=== PATIENT | female | born 1985 | race Caucasian/White ===

== ENCOUNTER → 2017-05-17 | Outpatient (CLI) | payer OTHER ==
[~2017-05-17] VITALS: Ht 152.4 cm; Wt 54.4 kg
[~2017-05-17] MED LIST: ALLEGRA ALLERG180 MG PO; CELEXA20 MG; CIPRO500 MG PO; DAILY VALUE1 EACH; FISH OIL300 MG; MAGNESIUM100 MG; METROGEL-VAGINA70 GM VG; SEPTRA DS TABLE1 TAB PO; URETRON DS1 TAB PO
== END | disposition home or self-care (01) ==
LOC: PPHC 09:06
DX: B34.9 Viral infection, unspecified (principal)

== ENCOUNTER 2017-09-16 02:42 | Emergency (ER) | payer OTHER ==
[~2017-09-16] VITALS: Ht 165.1 cm; Wt 57.6 kg
[2017-09-16] MEDS ORDERED: SINGULAIR10 MG (02:57)
[2017-09-16] MEDS ORDERED: PHENERGAN25 MG PO (08:00)
[2017-09-16] MEDS ORDERED: PEPCID40 MG PO (08:00)
[2017-09-16] MEDS ORDERED: CARAFATE1 GM/10 ML PO (08:00)
== END 2017-09-16 08:13 ==
LOC: ER 02:42
DX: S00.83XA Contusion of other part of head, initial encounter (principal); W22.8XXA Striking against or struck by other objects, initial encounter; Y93.89 Activity, other specified; Y92.098 Other place in other non-institutional residence as the place of occurrence of the external cause; Y99.8 Other external cause status; R11.2 Nausea with vomiting, unspecified

== ENCOUNTER → 2017-11-11 | Emergency (ER) | payer OTHER ==
[~2017-11-11] VITALS: Ht 165.1 cm; Wt 56.7 kg
[~2017-11-11] MED LIST changes: +CARAFATE1 GM/10 ML PO; +PEPCID40 MG PO; +PHENERGAN25 MG PO; +SINGULAIR10 MG
== END | disposition home or self-care (01) ==
LOC: ER 11:29
DX: M79.644 Pain in right finger(s) (principal)

== ENCOUNTER 2017-11-30 14:03 | Emergency (ER) | payer OTHER ==
[~2017-11-30] VITALS: Ht 165.1 cm; Wt 61.2 kg
== END 2017-11-30 17:49 | disposition home or self-care (01) ==
LOC: ER 14:03
DX: S13.4XXA Sprain of ligaments of cervical spine, initial encounter (principal); M62.830 Muscle spasm of back; V49.9XXA Car occupant (driver) (passenger) injured in unspecified traffic accident, initial encounter; Y93.89 Activity, other specified; Y92.488 Other paved roadways as the place of occurrence of the external cause; Y99.8 Other external cause status

== ENCOUNTER → 2018-08-10 | Emergency (ER) | payer OTHER | END | disposition left against medical advice (07) | LOC: ER 11:24 | DX: Z53.20 Procedure and treatment not carried out because of patient's decision for unspecified reasons (principal) ==

== ENCOUNTER → 2019-05-19 | Outpatient (CLI) | payer OTHER | END | disposition home or self-care (01) | LOC: LAB 13:01 | DX: J11.1 Influenza due to unidentified influenza virus with other respiratory manifestations (principal); R05 Cough ==

== ENCOUNTER 2019-05-31 07:28 | Emergency (ER) | payer OTHER ==
[~2019-05-31] VITALS: Ht 165.1 cm; Wt 65.8 kg
[2019-05-31] MEDS ORDERED: LEVSIN/SL0.125 MG SL (08:20)
== END 2019-05-31 08:30 | disposition home or self-care (01) ==
LOC: ER 07:28
DX: R53.81 Other malaise (principal)

== ENCOUNTER 2019-09-11 11:00 | Outpatient (CLI) | payer OTHER ==
[~2019-09-11 11:00] MED LIST changes: +LEVSIN/SL0.125 MG SL
== END 2019-09-11 11:12 | disposition home or self-care (01) ==
LOC: LAB 11:00
PROVIDERS: ATTEND General Practice
DX: J11.1 Influenza due to unidentified influenza virus with other respiratory manifestations (principal); Z20.828 Contact with and (suspected) exposure to other viral communicable diseases; R51 Headache; R53.81 Other malaise; Z11.59 Encounter for screening for other viral diseases

== ENCOUNTER 2020-11-07 15:58 | Emergency (ER) | payer OTHER ==
[~2020-11-07] VITALS: Ht 165.1 cm; Wt 70.3 kg
== END 2020-11-07 20:09 | disposition home or self-care (01) ==
LOC: ER 15:58
DX: J06.9 Acute upper respiratory infection, unspecified (principal); R53.81 Other malaise; M54.5 Low back pain; R53.1 Weakness; Z03.818 Encounter for observation for suspected exposure to other biological agents ruled out

== ENCOUNTER → 2024-08-05 | Emergency (ER) | payer OTHER ==
[~2024-08-05] VITALS: Ht 165.1 cm; Wt 72.1 kg
[~2024-08-05] MED LIST changes: +0.9 % SODIUM CHLORIDE 1,000 ML IV STA; +FAMOTIDINE/PF 20 MG/2 ML VIAL IV ONE; +FAMOTIDINE/PF 20 MG/2 ML VIAL ONE; +ONDANSETRON HCL 2 MG/ML VIAL IV ONE; +ONDANSETRON HCL 2 MG/ML VIAL ONE
[2024-08-05 16:45] LABS: BASO % 0.4 % (0.1-1.2); EOS # 0.11 (0.04-0.54); EOS % 0.7 % (0.7-7.0); HEMATOCRIT 34.1 % (34.1-44.9); HEMOGLOBIN 11.8 g/dL (11.2-15.7); LYMPH # 2.94 (1.18-3.74); LYMPH % 17.5 % (19.3-53.1); MEAN CORPUSCULAR HEMOGLOBIN 29.5 pg (25.6-32.2); MONO # 0.57 (0.24-0.82); MONO % 3.4 % (4.7-12.5); NEUT # 12.86 (1.56-6.13); NEUT % 76.5 % (34.0-71.1); PLATELET COUNT 263 K/uL (163-369); RED CELL DISTRIBUTION WIDTH 12.9 % (11.6-14.4)
[2024-08-05 17:05] LABS: CALCIUM 9.7 mg/dL (8.5-10.1); CREATININE SERUM 0.49 mg/dL (0.55-1.02); GFR 140.6; POTASSIUM 3.73 mEq/L (3.5-5.1)
[2024-08-05 17:20] LABS: PH,URINE 6.5 (5.0-8.0); URINE APPEARANCE Clear; URINE BILIRRUBIN Negative (NEGATIVE); URINE BLOOD Small; URINE COLOR Yellow; URINE GLUCOSE Negative (NEGATIVE); URINE LEUKOCYTE Negative; URINE NITRATE Negative; URINE PROTEIN Negative (NEGATIVE); URINE UROBILINOGEN 0.2 E.U./dl
[2024-08-05 17:24] LABS: URINE BACTERIA 598.4 uL (0.0-1933); URINE EPITHELIAL CELLS 16.7 uL (0.0-38.8); URINE RBC 36.3 uL (0.0-20.8)
[2024-08-05 17:53] LABS: URINE KETONE 80 (NEGATIVE)
== END | disposition home or self-care (01) ==
LOC: ER 13:28
PROVIDERS: Emergency Medicine
DX: O21.8 Other vomiting complicating pregnancy (principal); E86.0 Dehydration; Z3A.20 20 weeks gestation of pregnancy

== ENCOUNTER 2024-11-01 11:26 | Outpatient (CLI) | payer OTHER ==
[~2024-11-01 11:26] MED LIST changes: -0.9 % SODIUM CHLORIDE 1,000 ML IV STA; -FAMOTIDINE/PF 20 MG/2 ML VIAL IV ONE; -FAMOTIDINE/PF 20 MG/2 ML VIAL ONE; -ONDANSETRON HCL 2 MG/ML VIAL IV ONE; -ONDANSETRON HCL 2 MG/ML VIAL ONE
== END 2024-11-01 12:33 | disposition home or self-care (01) ==
LOC: NST 11:26
PROVIDERS: ATTEND Obstetrics & Gynecology Maternal & Fetal Medicine
DX: Z34.83 Encounter for supervision of other normal pregnancy, third trimester (principal)

== ENCOUNTER 2024-12-11 05:44 | Inpatient (IN) | payer OTHER ==
[~2024-12-11] VITALS: Ht 165.1 cm; Wt 79.4 kg
[2024-12-11 05:05] VITALS: BP 133/95
[2024-12-11] MEDS ORDERED: PRENATAL CAPLE1 EAC1 PO (05:52)
[2024-12-11] MEDS ORDERED: CHILDREN'S ASPI81 MG PO (05:57)
[2024-12-11] MEDS ORDERED: MAGNESIUM250 M1 PO (05:57)
[2024-12-11] MEDS ORDERED: RINGERS SOLUTION,LACTATED 1,000 ML IV SCH (06:15)
[2024-12-11 06:55] LABS: URINE APPEARANCE Clear; URINE BILIRRUBIN Negative (NEGATIVE); URINE BLOOD Negative; URINE COLOR Yellow; URINE GLUCOSE Negative (NEGATIVE); URINE KETONE Negative (NEGATIVE); URINE LEUKOCYTE Trace; URINE NITRATE Negative; URINE PROTEIN Negative (NEGATIVE); URINE UROBILINOGEN 0.2 E.U./dl
[2024-12-11 06:56] LABS: BASO % 0.6 % (0.1-1.2); EOS # 0.14 (0.04-0.54); EOS % 1.3 % (0.7-7.0); LYMPH # 3.86 (1.18-3.74); LYMPH % 35.0 % (19.3-53.1); MEAN PLATELET VOLUME 11.30 fl (9.4-12.4); MONO # 0.69 (0.24-0.82); MONO % 6.3 % (4.7-12.5); NEUT # 6.04 (1.56-6.13); NEUT % 54.7 % (34.0-71.1); RED CELL DISTRIBUTION WIDTH 14.6 % (11.6-14.4)
[2024-12-11 07:04] LABS: URINE BACTERIA 197.9 uL (0.0-1933); URINE EPITHELIAL CELLS 21.9 uL (0.0-38.8); URINE RBC 4.5 uL (0.0-20.8); URINE WBC 11.9 uL (0.0-23.2)
[2024-12-11 07:10] LABS: URINE CAST 0.00 uL (0.0-1.40)
[2024-12-11 07:17] LABS: INR < 0.93
[2024-12-11 07:24] LABS: ALT/SGPT 31.0 U/L (12-78); AST/SGOT 20.0 U/L (15-37); BILIRUBIN TOTAL 0.2 mg/dL (0.3-1.2); BUN CREA RATIO 18.0 (7.0-25.0); CREATININE SERUM 0.51 mg/dL (0.55-1.02); GFR 134.25; GLOBULINA 3.5 G/DL (2.4-3.5); GLUCOSE FASTING 85.0 mg/dL (65-100); OSMOLALITY SERUM 275.0 MOSM/KG (275-295)
[2024-12-11 07:30] VITALS: BP 144/89
[2024-12-11] MEDS ORDERED: OXYTOCIN 500 ML IV ONE (08:15)
[2024-12-11] MEDS ORDERED: OXYTOCIN 20 UNITS/500ML RL PIGGYBAG IV ONE (08:25)
[2024-12-11 11:05] VITALS: BP 135/83
[2024-12-11] MEDS ORDERED: MORPHINE SULFATE 4 MG/ML CARTRIDGE IV STA ×2 (13:58→16:09)
[2024-12-11 14:07] VITALS: BP 135/78
[2024-12-11 15:39] VITALS: BP 140/70
[2024-12-11] MEDS ORDERED: ERYTHROMYCIN BASE OPHT 1GM EACH TUBE OP ONE (17:52)
[2024-12-11] MEDS ORDERED: LIDOCAINE HCL 1% 10ML VIAL ONE (17:52)
[2024-12-11] MEDS ORDERED: CHLORHEXIDINE GLUCONATE 120 ML BOTTLE TOP ONE (17:52)
[2024-12-11] MEDS ORDERED: OXYTOCIN 20 UNITS/1000ML RL PIGGYBAG IV ONE (17:52)
[2024-12-11] MEDS ORDERED: NALOXONE HCL 0.4 MG/ML AMPUL IV ONE (19:15)
[2024-12-11] MEDS ORDERED: CARBOPROST TROMETHAMINE 250 MCG/ML AMPUL IM ONE (20:11)
[2024-12-11] MEDS ORDERED: CARBOPROST TROMETHAMINE 250 MCG/ML AMPUL IM STA (20:27)
[2024-12-11] MEDS ORDERED: METHYLERGONOVINE MALEATE 0.2 MG/ML AMPUL IV STA (20:27)
[2024-12-11] MEDS ORDERED: DOCUSATE SODIUM 100MG CAP PO SCH (20:29)
[2024-12-11] MEDS ORDERED: OXYTOCIN 1,000 ML IV SCH (20:30)
[2024-12-11] MEDS ORDERED: ACETAMINOPHEN WITH CODEINE 1 UDTAB TABLET PO PRN (20:30)
[2024-12-11 23:29] VITALS: BP 153/69
[2024-12-12 00:45] VITALS: BP 140/80
[2024-12-12 08:19] VITALS: BP 152/78
[2024-12-12 16:15] VITALS: BP 128/83
[2024-12-13] VITALS: BP 145/86
[2024-12-13 08:11] VITALS: BP 125/73
== END 2024-12-13 18:14 | disposition home or self-care (01) | DRG 768 ==
LOC: OB/GYN 05:44 → LDR 05:44 → OB/GYN 10:56
PROVIDERS: ADMIT Obstetrics & Gynecology; ATTEND Obstetrics & Gynecology
PROC: 10D07Z6 Extraction of Products of Conception, Vacuum, Via Natural or Artificial Opening (ICD-10-PCS; principal; 2024-12-11)
PROC: 0DQR0ZZ Repair Anal Sphincter, Open Approach (ICD-10-PCS; 2024-12-11)
PROC: 0W8NXZZ Division of Female Perineum, External Approach (ICD-10-PCS; 2024-12-11)
PROC: 4A1HXCZ Monitoring of Products of Conception, Cardiac Rate, External Approach (ICD-10-PCS; 2024-12-11)
DX: O70.21 Third degree perineal laceration during delivery, IIIa (principal); Z37.0 Single live birth; O66.5 Attempted application of vacuum extractor and forceps; O69.81X0 Labor and delivery complicated by cord around neck, without compression, not applicable or unspecified; Z3A.38 38 weeks gestation of pregnancy